=== PATIENT | male | born 1945 | race Caucasian/White ===

== ENCOUNTER 2017-10-29 10:53 | Outpatient (CLI) | payer OTHER | END 2017-10-30 14:16 | disposition home or self-care (01) | LOC: LAB 10:53 | DX: A49.2 Hemophilus influenzae infection, unspecified site (principal); J11.1 Influenza due to unidentified influenza virus with other respiratory manifestations ==

== ENCOUNTER → 2018-11-16 | Outpatient (CLI) | payer OTHER | END | disposition home or self-care (01) | LOC: SONOGRAMA 14:23 → TOM 14:23 | DX: R51 Headache (principal) ==

== ENCOUNTER 2022-12-24 13:38 | Outpatient (CLI) | payer OTHER | END 2022-12-24 13:54 | disposition home or self-care (01) | LOC: RAD 13:38 | PROVIDERS: ATTEND Internal Medicine | DX: R05.8 Other specified cough (principal); R06.02 Shortness of breath; J02.9 Acute pharyngitis, unspecified; J01.90 Acute sinusitis, unspecified ==

== ENCOUNTER 2023-08-26 14:15 | Outpatient (CLI) | payer OTHER | END 2023-08-26 14:25 | disposition home or self-care (01) | LOC: RAD 14:15 | PROVIDERS: ATTEND Internal Medicine | DX: M25.571 Pain in right ankle and joints of right foot (principal) ==